=== PATIENT | female | born 1980 | race Asian ===

== ENCOUNTER 2017-11-28 06:45 | Day surgery (SDC) | payer OTHER ==
[~2017-11-28] VITALS: Ht 160 cm; Wt 51.2 kg
[2017-11-28 07:09] VITALS: BP 103/57
[2017-11-28 11:45] VITALS: BP 92/64
== END 2017-11-28 11:00 | disposition home or self-care (01) ==
LOC: OR 06:45
PROVIDERS: Internal Medicine Gastroenterology
PROC: 0DB68ZX Excision of Stomach, Via Natural or Artificial Opening Endoscopic, Diagnostic (ICD-10-PCS; principal; 2017-11-28 07:30)
PROC: 0DJD8ZZ Inspection of Lower Intestinal Tract, Via Natural or Artificial Opening Endoscopic (ICD-10-PCS; 2017-11-28 07:30)
DX: K57.30 Diverticulosis of large intestine without perforation or abscess without bleeding (principal); Z80.0 Family history of malignant neoplasm of digestive organs
CPT/HCPCS: 43235; 45378; J1200; J1610; J2250; J2310; J3010; J3490